=== PATIENT | female | born 1985 | race Caucasian/White ===

== ENCOUNTER 2016-06-28 05:33 | Day surgery (SDC) | payer BC, OTHER ==
--- NOTE | 2016-06-21 15:23 | HISTORY & PHYSICAL EXAMINATION ---
DATE OF ADMISSION: 06/28/2016 ADMITTING DIAGNOSIS: Persistent complex right ovarian cyst. ADMISSION HISTORY: The patient is a 31-year-old 0, last menstrual period of 05 June, who is admitted for laparoscopic right oophorectomy for a persistent complex ovarian cyst. The patient's pathology dates back to February of 2016. She was seen acutely by an ancillary provider for pelvic pain. She had a pelvic ultrasound, which showed a 10 x 8 x 6 cm complex ovarian cyst with 2 large multiple cysts. Over the patient's next 6 weeks, her pain resolved spontaneously. Repeat pelvic ultrasound though showed persistence of the large complex cyst. Treatment options were discussed with the patient and she has opted for surgical removal here in [place]. PAST MEDICAL HISTORY: OBSTETRICS: Nulligravida. GYNECOLOGY: As above. MEDICAL: Multiple sclerosis, fibromyalgia, and anxiety. SURGICAL: D\T\C. ALLERGIES: BACTRIM, CIPRO, MELOXICAM AND NAPROXEN. SOCIAL HISTORY: No smoking. FAMILY HISTORY: Noncontributory. REVIEW OF SYSTEMS: As per HPI. PHYSICAL EXAMINATION: GENERAL: Shows an obese female in no acute distress. VITAL SIGNS: Blood pressure 124/84, height of 5 feet 7 inches, and weight of 319 pounds. HEENT EXAMINATION: Unremarkable. NECK: Supple. LUNGS: Clear. HEART: With a regular rhythm and rate. ABDOMEN: Obese and nontender with no palpable masses. No rebound, no guarding, and no organomegaly. Positive bowel sounds. PELVIC: Shows normal external genitalia. Vaginal vault is pink and rugated. Cervical os is closed. On bimanual examination, the uterus, tubes, and ovaries cannot be palpated secondary to patient habitus. RECTAL: Confirmatory. EXTREMITIES: Show no deep calf tenderness. IMPRESSION: A 31-year-old 0, persistent complex right ovarian cyst for laparoscopic oophorectomy. PLAN: The risks, benefits and alternatives to the surgery have been discussed. While the benefits will be removal of the tissue, the risks are bleeding, infection, inadvertent perforation of bowel or bladder or failure to be able to remove the ovary completely laparoscopically. Alternatively, the patient had been offered a referral to a tertiary care center for possible ovarian cystectomy, but the patient declines. The possibility of also having to remove the right tube in addition to the right ovary has been discussed with the patient. The patient understands all of the above. The permit has been signed and she wishes to proceed.
[2016-06-21 15:24] VITALS: BMI 47.0
--- NOTE | 2016-06-21 16:02 | PAT Medication Instructions ---
Service Date Jun 21, 2016. Current Home Medication List Baclofen (Baclofen), 2 MG PO TID Cetirizine (Zyrtec), 10 MG PO QAM Cholecalciferol (Vitamin D3), 1 TAB PO QAM Citalopram Hydrobromide (Celexa), 20 MG PO HS Clonazepam (Klonopin), 0.5 MG PO DAILY PRN for Anxiety Fluticasone Propionate (Flonase Nasal [place]), 2 SPRAYS RAD DAILY PRN for PRN Gabapentin (Neurontin), 100 MG PO QAM LUNCH Gabapentin (Neurontin), 200 MG PO HS Glatiramer Acetate (Copaxone), 1 DOSE SQ M,W,F Melatonin (Melatonin Maximum Strengt), 1 TAB PO HS Naltrexone Hcl (Naltrexone Hcl), 100 MG PO HS Solifenacin (Vesicare), 5 MG PO DAILY PRN for PRN Medication Instructions For Your Scheduled Surgery - Continue as directed: Glatiramer Acetate ([place]), 1 DOSE SQ M,W,F - Hold the following medications the morning of surgery: Baclofen (Baclofen), 2 MG PO TID Cetirizine (Zyrtec), 10 MG PO QAM Cholecalciferol (Vitamin D3), 1 TAB PO QAM - Take the following medications the morning of surgery with a sip of water OTHERWISE NOTHING TO EAT OR DRINK AFTER MIDNIGHT: Clonazepam (Klonopin), 0.5 MG PO DAILY PRN for Anxiety Gabapentin (Neurontin), 100 MG PO QAM LUNCH (time permitting) Fluticasone Propionate (Flonase Nasal [place]), 2 SPRAYS RAD DAILY PRN for PRN - Take the following medications as scheduled the night before surgery: Baclofen (Baclofen), 2 MG PO TID Gabapentin (Neurontin), 200 MG PO HS Melatonin (Melatonin Maximum Strengt), 1 TAB PO HS Naltrexone Hcl (Naltrexone Hcl), 100 MG PO HS Citalopram Hydrobromide (Celexa), 20 MG PO HS Solifenacin (Vesicare), 5 MG PO DAILY PRN for PRN If you have any questions please call us at [phone] (Nicole Nagel PA-C ) or [phone] or [phone]
[2016-06-21 16:36] LABS: BASO % 0.2 %; BASO ABS # 0.03 K/uL (0-0.2); COMPLETE YES; EOS % 2.1 %; HEMATOCRIT 39.2 % (37-47); IG% 0.2 %; LYMPH % 23.5 %; LYMPH ABS # 2.99 K/uL (1.2-3.4); MEAN CELL VOLUME 84.3 fL (80-100); MEAN CORPUSCULAR HEMOGLOBIN 27.7 pg (25-34); MEAN CORPUSCULAR HGB CONC 32.9 g/dl (32-36); MEAN PLATELET VOLUME 9.1 fL (7.4-10.4); MONO % 4.8 %; NEUT % 69.2 %; PLATELET COUNT 317 K/uL (130-400); RED BLOOD COUNT 4.65 M/uL (4.2-5.4); WHITE BLOOD COUNT 12.74 K/uL (4.8-10.8)
[2016-06-21 17:01] LABS: CALCIUM 9.1 mg/dl (8.5-10.1); CREATININE 0.83 mg/dl (0.60-1.20); POTASSIUM 3.6 mmol/L (3.5-5.1)
[2016-06-28] VITALS (8 sets, daily range): BP systolic 105–151; BP diastolic 51–86; PULSE 80–103; TEMP 36.5–37.1; O2SAT 92–97; Ht 175.3 cm; Wt 144.0 kg
[~2016-06-28] VITALS: Ht 175.3 cm; Wt 144.0 kg
[~2016-06-28 05:33] MED LIST: CETI10TA84 PO; CHOL1000 PO; CITA20TA9 PO; CLON0.5T3 PO; FLNIN NAE; GABA-112 PO; GABA1CAP PO; GLAT1INJ SQ; LRS20 PO; MELATAB2 PO; NALT50TA5 PO; VSC/5 PO
[2016-06-28] MEDS ORDERED: MULT-506 PO (05:57)
[2016-06-28] MEDS ORDERED: LACTATED RINGER'S 1000ML 1,000 ML IV SCH ×2 (06:00)
[2016-06-28] MEDS ORDERED: FENTANYL CITRATE INJ 50 MCG/1 ML 2 ML VIAL ONE ×3 (06:58→09:24)
[2016-06-28] MEDS ORDERED: MIDAZOLAM HCL 1 MG/ML 2ML VIAL ONE (06:58)
--- NOTE | 2016-06-28 07:05 | History & Physical Bridge Note ---
H&P Re-Evaluation Bridge Note: I have examined the patient, reviewed the History & Physical and in the interval since the performance of the History & Physical I have noted the following changes of clinical significance: No changes noted
[2016-06-28] MEDS ORDERED: EpHEDrine SULFATE INJ 50 MG/ML AMP IV PRN (07:15)
[2016-06-28] MEDS ORDERED: ONDANSETRON INJ 2 MG/ML 2 ML VIAL IV PRN ×2 (07:15→09:15)
[2016-06-28] MEDS ORDERED: ATROPINE SULFATE 0.1 MG/ML 5ML SYR IV PRN (07:15)
[2016-06-28] MEDS ORDERED: PROPOFOL IV EMULSION 10 MG/ML 20 ML VIAL IV ONE (07:54)
[2016-06-28] MEDS ORDERED: DEXAMETHASONE SOD INJ 4 MG/ML VIAL ONE (07:54)
[2016-06-28] MEDS ORDERED: GLYCOPYRROLATE INJ 0.2 MG/ML VIAL ONE (07:54)
[2016-06-28] MEDS ORDERED: ROCURONIUM BROMIDE 10 MG/ML 5 ML VIAL ONE (07:54)
[2016-06-28] MEDS ORDERED: NEOSTIGMINE METHYLSULFATE 5 MG/5 ML SYR ONE (07:54)
[2016-06-28] MEDS ORDERED: ONDANSETRON INJ 2 MG/ML 2 ML VIAL ONE (07:54)
[2016-06-28] MEDS ORDERED: LIDOCAINE HCL 2% 2 ML VIAL (20MG/ML) ONE (07:54)
[2016-06-28] MEDS ORDERED: ACETAMINOPHEN IV 650 MG in EMPTY BAG 0 ML IV PRN (09:15)
[2016-06-28] MEDS ORDERED: OXYCODONE/ACETAMINOPHEN 5-325 TAB PO PRN (09:15)
[2016-06-28] MEDS ORDERED: SODIUM CHLORIDE 0.9% 1000ML 1,000 ML IV SCH (09:15)
--- NOTE | 2016-06-28 09:20 | [facility] Post Operative Brief Note ---
Immediate Operative Summary Operative Date Jun 28, 2016. Pre-Operative Diagnosis Persistent complex right ovarian cyst Post-Operative Diagnosis Same as preoperative diagnosis Procedure(s) Performed Right Laparoscopic Salpingo-Oophorectomy Jadiel on standby Surgeon Dr. Hilario Villalobos Cnc Service Technician Surgeon(s) Dr. Mallory Childs Estimated Blood Loss 50 ml Findings large multi-cystic right ovary, ruptured during dissection with chocolate fluid consistent with endometrioma, RSO performed, pelvis irrigated Fluids (cc crystalloids) 1200 Specimens Permanent specimens A: Right fallopian tube and ovary Drains None Anesthesia General Complication(s) None Disposition Recovery Room / PACU
--- NOTE | 2016-06-28 09:25 | Discharge Instructions-SurgCtr ---
Discharge Instructions Visit Reason for Visit: Complex Right Ovarian Cyst Discharge Discharge Diagnosis / Problem: same Discharge Goals Goal(s): Therapeutic intervention Activity Recommendations Activity Limitations: as noted below Anesthesia . Post Anesthesia Instructions: If you have had General Anesthesia or IV Sedation: * Do not drive today. * Resume driving when surgeon permits. * Do not make important decisions or sign legal documents today. * Call surgeon for: 1. Temperature elevations greater than 101 degrees F. 2. Uncontrollable pain. 3. Excessive bleeding. 4. Persistent nausea and vomiting. 5. Medication intolerance (nausea, vomiting or rash). * For nausea and vomiting use only clear liquids such as: tea, soda, bouillon until nausea subsides, then gradually increase diet as tolerated. * If you have any concerns or questions, call your surgeon's office. If physician is unavailable and it is an emergency, call 911 or go to the nearest emergency room. . Instructions / Follow-Up Instructions / Follow-Up ACTIVITY RECOMMENDATIONS: * Rest the first 2-3 days. You should be back to your normal activity levels by day 3. * No heavy lifting for 2 weeks. * No intercourse, tampons or douching for 1-2 weeks. * You may shower the next day. * Do not drive anytime that you are taking narcotic pain medicines. RETURN TO SCHOOL/WORK: * May return to school or work after 2-3 days. DIET: Nausea may occur in the immediate post-operative period. If so, take clear liquids such as tea, bouillon, apple juice until all nausea has subsided, then resume usual diet. MEDICATIONS: Resume previous medications unless instructed otherwise by your surgeon. Ibuprofen 200mg 2-3 tablets every 4-6 hours as needed -- OR -- Aleve 2 tablets every 8-12 hours as needed for post-operative discomfort Medications are over the counter. Tylenol may be used if above medications are contraindicated or not preferred. Medication should be taken with food or milk. Do not take on an empty stomach. SPECIAL CARE INSTRUCTIONS: * Check temperature twice daily for one week. report any elevation over 101 degrees. * You may experience some vagina spotting and/or bleeding. This is normal for 1 -2 weeks and should not be heavier than a normal period. If it is unusual in amount, call your physician. * Post-operative discomfort may consist of a sore throat, a "bloated" feeling and pain in the shoulders. these are normal symptoms, which usually only last for 2-3 days. * Remove band-aids tomorrow and shower. There is no need to replace band-aids unless there is drainage or discomfort. FOLLOW UP VISIT: Call your doctor's office for a post-operative 2 week visit if not already scheduled. Diet Recommendations Home Diet: resume previous diet Procedures Procedures Performed: Right Laparoscopic Salpingo-Oophorectomy Jadiel on standby Pending Studies Studies pending at discharge: yes List of pending studies: Pathology Medical Emergencies . Who to Call and When: Medical Emergencies: If at any time you feel your situation is an emergency, please call 911 immediately. . Non-Emergent Contact Non-Emergency issues call your: Lock Tender Call Non-Emergent contact if: you have a fever, temperature is above 100.5, your pain is not controlled, wound has increased drainage, wound has increased redness, wound has increased pain . . "Provider Documentation" section prepared by Hilario Villalobos.
[2016-06-28] MEDS ORDERED: OXYC-57 PO (09:26)
[2016-06-28] MEDS ORDERED: METOCLOPRAMIDE HCL INJ 5 MG/ML 2 ML VIAL ONE (09:36)
[2016-06-28] MEDS: FENTANYL CITRATE INJ 50 MCG/1 ML 2 ML VIAL IV PRN ×4 (09:42→10:00)
--- NOTE | 2016-06-28 09:42 | OPERATIVE REPORT ---
DATE OF OPERATION: 06/28/2016 PREOPERATIVE DIAGNOSIS: Right complex ovarian cyst. POSTOPERATIVE DIAGNOSES: 1. Same. 2. Right ovarian endometrioma. PROCEDURES PERFORMED: 1. Diagnostic laparoscopy. 2. Laparoscopic right salpingo-oophorectomy. SURGEON: Hilario Villalobos MD HOSTESS CASHIER: Mallory Childs MD ANESTHESIA: General. FINDINGS: Laparoscopic examination of the pelvis showed a large complex cyst of the right ovary and measuring approximately 10 cm adhered to the right pelvic sidewall, blunt dissection pulled the ovary off the right pelvic sidewall, left tube and ovary appeared grossly normal, right salpingo-oophorectomy performed and sent for pathological evaluation. PROCEDURE IN DETAIL: The patient was taken to the operating room and after general anesthesia, was placed in dorsolithotomy position and draped and prepped in the usual fashion. Menard catheter was inserted into the bladder which remained there throughout the procedure. Single tooth tenaculum was used to grasp the anterior lip of the cervix. [place] cannula was inserted into the cervical os and fastened to the tenaculum. Small subumbilical incision was made and Veress needle was introduced into the pelvic cavity which was then insufflated with 2 liters of CO2. A supraumbilical incision was made and a 12 mm port was inserted under direct laparoscopic guidance. Pelvic organs were visualized. Two paramedial 8 mm robotic ports were placed and the patient was placed in steep Trendelenburg. Pelvic organs were visualized with the description as above. The Harmonic scalpel was inserted through the right paramedial port. The ureter could be seen coursing along the medial reflection of the peritoneum at the pelvic brim going along the pelvic sidewall not being involved by the mass. Using the Harmonic scalpel, the infundibulopelvic ligament on the right side was cauterized adjacent to the ovary and the incision was extended along the mesosalpinx under the inferior margin of the tube. The tube was then cauterized at the apex and the uteroovarian ligament was then cauterized and cut freeing the mass. The Harmonic scalpel was removed and a 5 mm scope was placed through the right paramedial port. A 10 mm bag was placed through the suprapubic trocar and the right tube and ovary were placed into the bag and brought up to the fascial incision. The fascial incision was extended for approximately 2 cm to allow removal of the right tube and ovary. This was done in pieces and the bag was removed in toto. The pelvis was then thoroughly irrigated with 1000 mL of warm saline. Pedicles were inspected for hemostasis, which was present. The laparoscopic ports were removed. The fascia supraumbilically was closed in a running stitch with 0 Vicryl suture. The subcutaneous tissues were irrigated on all 3 ports and the skin incisions were closed with a 4-0 Monocryl subcuticular stitches. Sterile dressings were applied and the patient was taken to the recovery room in satisfactory condition. I attest to the content of the Intraoperative Record and any orders documented therein. Any exceptio ns are noted below.
[2016-06-28] MEDS ORDERED: NURSING VERBAL MED ORDER ONE ×2 (10:00→12:15)
[2016-06-28] MEDS ORDERED: ACETAMINOPHEN 1000 MG/100 ML IV IV ONE (10:17)
--- NOTE | 2016-06-28 10:40 | Anesthesiology Progress Note ---
Anesthesia Post Op Note Date & Time Jun 28, 2016 at 10:39 Vital Signs Pain Intensity: 5 Vital Signs Past 12 Hours Date Time Temp Pulse Resp B/P Pulse Ox O2 Delivery O2 Flow Rate FiO2 06/28/16 10:28 36.5 80 17 130/82 95 Nasal Cannula 3 06/28/16 10:23 127/88 06/28/16 10:20 86 19 06/28/16 10:20 85 19 95 06/28/16 10:18 140/88 06/28/16 10:15 83 17 95 06/28/16 10:15 83 17 06/28/16 10:13 103/93 06/28/16 10:10 81 19 06/28/16 10:10 80 19 91 06/28/16 10:08 133/81 06/28/16 10:05 83 14 93 06/28/16 10:05 83 14 06/28/16 10:04 86 17 91 06/28/16 10:04 87 17 06/28/16 10:03 120/82 06/28/16 09:59 77 17 06/28/16 09:59 76 17 93 06/28/16 09:58 123/88 06/28/16 09:55 79 18 94 06/28/16 09:55 80 18 06/28/16 09:53 133/89 06/28/16 09:50 75 17 95 06/28/16 09:50 75 17 06/28/16 09:48 136/83 06/28/16 09:45 80 21 95 06/28/16 09:45 80 21 06/28/16 09:43 121/83 06/28/16 09:40 90 25 93 06/28/16 09:40 90 25 06/28/16 09:38 136/75 06/28/16 09:35 89 16 94 06/28/16 09:35 90 16 06/28/16 09:33 126/72 06/28/16 09:30 94 18 95 06/28/16 09:30 94 18 06/28/16 09:30 36.1 98 20 119/58 96 Mask 10 06/28/16 05:59 36.7 81 20 119/51 97 Room Air Notes Mental Status: alert / awake / arousable, participated in evaluation Pt Amnestic to Procedure: Yes Nausea / Vomiting: adequately controlled Pain: adequately controlled Airway Patency, RR, SpO2: stable & adequate BP & HR: stable & adequate Hydration State: stable & adequate Anesthetic Complications: no major complications apparent
[2016-06-28] MEDS ORDERED: BACLOFEN TAB 20 MG TAB PO ONE (12:30)
[2016-12-10] MEDS ORDERED: GABA-112 PO (11:46)
[2016-12-10] MEDS ORDERED: triamcinolone TOP (11:50)
[2016-12-10] MEDS ORDERED: ESCI10TA17 PO (11:50)
[2016-12-10] MEDS ORDERED: VITA60003 TOP (11:50)
== END 2016-06-28 15:40 | disposition home or self-care (01) ==
LOC: C.ACU 05:33
PROVIDERS: ATTEND Obstetrics & Gynecology
DX: N83.201 Unspecified ovarian cyst, right side (principal); N80.1 Endometriosis of ovary; N80.2 Endometriosis of fallopian tube; G35 Multiple sclerosis; M79.7 Fibromyalgia; F41.9 Anxiety disorder, unspecified; F32.9 Major depressive disorder, single episode, unspecified; Z88.1 Allergy status to other antibiotic agents; Z68.42 Body mass index [BMI] 45.0-49.9, adult; E66.01 Morbid (severe) obesity due to excess calories
CPT/HCPCS: 58661; S2900

== ENCOUNTER → 2016-11-28 | Outpatient (CLI) | payer BC ==
[~2016-11-28] MED LIST changes: +ESCI10TA17 PO; +MULT-506 PO; +OXYC-57 PO; +VITA60003 TOP; +triamcinolone TOP
[2016-11-28 13:58] LABS: BASO % 0.3 %; BASO ABS # 0.03 K/uL (0-0.2); COMPLETE YES; HEMATOCRIT 40.6 % (37-47); IG% 0.3 %; LYMPH % 16.2 %; LYMPH ABS # 1.84 K/uL (1.2-3.4); MEAN CELL VOLUME 83.9 fL (80-100); MEAN CORPUSCULAR HEMOGLOBIN 27.7 pg (25-34); MONO % 3.2 %; PLATELET COUNT 339 K/uL (130-400); RED BLOOD COUNT 4.84 M/uL (4.2-5.4); WHITE BLOOD COUNT 11.33 K/uL (4.8-10.8)
[2016-11-28 14:19] LABS: ALT/SGPT 31 U/L (12-78); AST/SGOT 22 U/L (15-37); BLOOD UREA NITROGEN 11 mg/dl (7-18); CALCIUM 9.2 mg/dl (8.5-10.1); CARBON DIOXIDE 28 mmol/L (21-32); CHLORIDE 105 mmol/L (98-107); CREATININE 0.85 mg/dl (0.60-1.20); GLUCOSE 93 mg/dl (70-99); POTASSIUM 3.6 mmol/L (3.5-5.1); SODIUM 140 mmol/L (136-145)
[2016-11-28 14:20] LABS: ALB/GLOB RATIO 0.8 (0.9-2); ALKALINE PHOSPHATASE 132 U/L (45-117)
--- NOTE | 2016-11-28 15:56 | DIAGNOSTIC IMAGING REPORT ---
ULTRASOUND ABDOMEN COMPLETE CLINICAL HISTORY: Generalized abdominal pain.. COMPARISON STUDY: No priors. TECHNIQUE: Real-time, grayscale, and color flow sonography of the abdomen was performed. Images are reviewed in the transverse and longitudinal planes. FINDINGS: Liver: The liver is normal in size and echotexture. There is no intrahepatic biliary ductal dilatation. The main portal vein is patent. Gallbladder: The gallbladder is normal in appearance. No gallstones are identified. There is no gallbladder wall thickening or pericholecystic fluid. A sonographic Corral's sign is reportedly absent. The common bile duct measures up to 0.5 cm in diameter. Pancreas: Visualized portions of the pancreatic head and body are normal in appearance. The splenic vein is patent. Spleen: The spleen is normal in size and echotexture, measuring 12.0 cm in length. Kidneys: The kidneys are normal in size and echotexture. There is no hydronephrosis. The right kidney measures 11.6 cm in length and the left kidney measures 11.4 cm in length. No shadowing calculi are identified. Abdominal vasculature: Visualized portions of the abdominal aorta and IVC are normal as imaged. Ascites: None. Bladder: The bladder is partially decompressed and grossly unremarkable. IMPRESSION: Unremarkable sonographic assessment of the abdomen. Electronically signed by: Juan Antonio Martinez M.D. 11/28/2016 3:55 PM Dictated Date/Time: 11/28/2016 3:53 PM
== END | disposition home or self-care (01) ==
LOC: C.ULTR 13:24
PROVIDERS: ATTEND Family Medicine
DX: R10.9 Unspecified abdominal pain (principal)

== ENCOUNTER 2018-01-09 13:15 | Emergency (ER) | payer BC, OTHER ==
[~2018-01-09] VITALS: Ht 175.3 cm; Wt 133.9 kg
[~2018-01-09 13:15] MED LIST changes: -CITA20TA9 PO; -CLON0.5T3 PO; +GABA-1693 PO; -GABA1CAP PO; +KLN/5 PO; -OXYC-57 PO; -VSC/5 PO
[2018-01-09 13:22] VITALS: TEMP 36.9; Ht 175.3 cm; Wt 133.9 kg
[2018-01-09] MEDS ORDERED: SODIUM CHLORIDE 0.9% 1000ML 1,000 ML IV STA (13:50)
[2018-01-09] MEDS ORDERED: [UNRECOGNIZED DRUG - CODE] (14:28)
[2018-01-09] MEDS ORDERED: FLUT0.15 (14:28)
[2018-01-09] MEDS ORDERED: [UNRECOGNIZED DRUG - CODE] INJ (14:28)
[2018-01-09 14:30] VITALS: O2SAT 98
--- NOTE | 2018-01-09 14:40 | DIAGNOSTIC IMAGING REPORT ---
CHEST ONE VIEW PORTABLE CLINICAL HISTORY: 32 years-old Female presenting with EVALUATE WEAKNESS. TECHNIQUE: Portable upright AP view of the chest was obtained. COMPARISON: 06/25/2014. FINDINGS: Cardiomediastinal silhouette normal. No focal opacity. No large effusion or pneumothorax. Osseous structures normal. Upper abdomen normal. IMPRESSION: 1. No acute cardiopulmonary disease. Electronically signed by: Giuseppe Tran M.D. 01/09/2018 2:39 PM Dictated Date/Time: 01/09/2018 2:38 PM
[2018-01-09 14:45] LABS: BASO % 0.3 %; BASO ABS # 0.03 K/uL (0-0.2); EOS % 2.9 %; EOS ABS # 0.33 K/uL (0-0.5); HEMOGLOBIN 14.3 g/dL (12.0-16.0); IG# 0.02 K/uL (0.00-0.02); LYMPH % 28.4 %; MEAN CELL VOLUME 86.6 fL (80-100); MEAN CORPUSCULAR HEMOGLOBIN 29.5 pg (25-34); MEAN PLATELET VOLUME 9.4 fL (7.4-10.4); MONO % 4.8 %; MONO ABS # 0.54 K/uL (0.11-0.59); NEUT % 63.4 %; NEUT ABS # 7.13 K/uL (1.4-6.5); PLATELET COUNT 324 K/uL (130-400); RED CELL DISTRIBUTION WIDTH CV 14.2 % (11.5-14.5); RED CELL DISTRIBUTION WIDTH SD 44.2 fL (36.4-46.3); WHITE BLOOD COUNT 11.25 K/uL (4.8-10.8)
[2018-01-09 14:53] LABS: PTT PATIENT 31.5 SECONDS (21.0-31.0)
[2018-01-09 15:10] LABS: ALBUMIN 3.7 gm/dl (3.4-5.0); ALKALINE PHOSPHATASE 122 U/L (45-117); ALT/SGPT 29 U/L (12-78); AST/SGOT 24 U/L (15-37); BLOOD UREA NITROGEN 12 mg/dl (7-18); CALCIUM 8.9 mg/dl (8.5-10.1); CARBON DIOXIDE 29 mmol/L (21-32); GLUCOSE 81 mg/dl (70-99); POTASSIUM 3.1 mmol/L (3.5-5.1); SODIUM 136 mmol/L (136-145); TOTAL PROTEIN 8.3 gm/dl (6.4-8.2)
--- NOTE | 2018-01-09 16:12 | DIAGNOSTIC IMAGING REPORT ---
HEAD CT NONCONTRAST CT DOSE: 690.05 mGycm HISTORY: l facial numbness TECHNIQUE: Multiaxial CT images of the head were performed without the use of intravenous contrast. Automated exposure control was utilized for this study. A dose lowering technique was utilized adhering to the principles of ALARA. Comparison: None. Findings: The paranasal sinuses and mastoid air cells are clear. The calvarium and skull base are intact. The ventricles and sulci are within normal limits. There is no mass, hematoma, midline shift, or acute infarct. Impression: No acute intracranial abnormality. Electronically signed by: Ab Jules M.D. 01/09/2018 4:11 PM Dictated Date/Time: 01/09/2018 4:04 PM
[2018-01-09 17:04] VITALS: BP 133/69; PULSE 62; O2SAT 97
--- NOTE | 2018-01-09 17:47 | EMERGENCY ROOM VISIT NOTE ---
History Report prepared by Melodie: Moises Demarco Under the Supervision of: Mila MooreO. First contact with patient: 13:40 Chief Complaint: OTHER COMPLAINT Stated Complaint: HEARTBURN TOOK BREATH AWAY,NUMBNESS TO FACE&MOUTH History of Present Illness The patient is a 32 year old female who presents to the Emergency Room with complaints of heartburn that "took her breath away" occurring at 12:10 PM today while sitting at her desk, as well as numbness and tingling around her mouth and the left side of her face. She describes the sensation as a burning pain into the back of her throat. The patient reports a history of heartburn that states she has had intermittently for years. She notes her current symptoms are similar. The patient also notes tingling and numbness around the mouth and left side of the face beginning immediately after the onset of the heartburn. She denies tingling or numbness in the hands. The patient notes a history of multiple sclerosis. She denies weakness in her arms or legs, or difficulty with talking. Patient denies diabetes, hypertension, hyperlipidemia, CAD, history of sudden at a young age, and smoking. Pt denies change in vision, fevers, nausea, vomiting, diarrhea, pain with urination, and melena. Source of History: patient Onset: 12:10 PM today Position: other (into back of throat) Quality: burning, numbness Timing: constant (numbness in mouth and left side of face) Associated Symptoms: No weakness (arms or legs) Review of Systems See HPI for pertinent positives & negatives. A total of 10 systems reviewed and were otherwise negative. Past Medical & Surgical Medical Problems: (1) AGE (acute gastroenteritis) (2) Anxiety (3) Complex cyst of right ovary (4) Hematochezia (5) Multiple sclerosis Family History Diabetes mellitus FHx: cancer Hypertension Social History Smoking Status: Never Smoker Alcohol Use: none Drug Use: none Marital Status: Occupation Status: unemployed Current/Historical Medications Scheduled Baclofen (Baclofen), 1 TAB PO TID Cetirizine (Zyrtec), 10 MG PO QAM Cholecalciferol (Vitamin D3), 1 TAB PO QAM Escitalopram (Lexapro), 10 MG PO DAILY Gabapentin (Neurontin), 100 MG PO QAM and lunch Gabapentin (Neurontin), 200 MG PO HS Gabapentin (Neurontin), 200 MG PO HS Interferon Beta-1A (Rebif), 1 INJ BID Melatonin (Melatonin Maximum Strengt), 1 TAB PO HS Multivitamin (Multivitamin), 1 TAB PO DAILY Naltrexone Hcl (Naltrexone Hcl), 300 MG PO HS Vitamin E (Topical) (Natural Vitamin E Moistur), DIRECTED [triamcinolone], 0.1 % TOP DAILY Scheduled PRN Clonazepam (Klonopin), 0.5 MG PO DAILY PRN for Anxiety Miscellaneous Medications Fluticasone Propionate (Nasal) (Flonase Allergy Relief), 2 SPRAYS Allergies Coded Allergies: Naproxen (Verified Allergy, Intermediate, nausea, fingers swollen, 01/09/18 ) Meloxicam (Verified Allergy, Mild, CHEST DISCOMFORT, 01/09/18) Ciprofloxacin (Verified Adverse Reaction, Intermediate, heart raced, ) Sulfamethoxazole w/Trimethoprim (Verified Adverse Reaction, Unknown, heart races, 01/09/18) Physical Exam Vital Signs Date Time Temp Pulse Resp B/P (MAP) Pulse Ox O2 Delivery O2 Flow Rate FiO2 01/09/18 17:04 62 18 133/69 97 01/09/18 15:42 59 20 126/75 98 Room Air 01/09/18 14:30 98 Room Air 01/09/18 14:30 76 20 128/69 98 01/09/18 14:30 76 20 128/69 98 87 130/79 80 137/83 01/09/18 13:56 80 01/09/18 13:22 36.9 91 18 138/72 98 Room Air Physical Exam GENERAL: Sitting up in bed, alert, well appearing, well nourished, no distress, non-toxic EYE EXAM: normal conjunctiva. PERRL and EOM's intact. OROPHARYNX: no exudate, no erythema, lips, buccal mucosa, and tongue normal and mucous membranes are moist NECK: supple, no nuchal rigidity, no adenopathy, non-tender LUNGS: Clear to auscultation. Normal chest wall mechanics HEART: no murmurs, S1 normal and S2 normal ABDOMEN: abdomen soft, non-tender, normo-active bowel sounds, no masses, no rebound or guarding. BACK: Back is symmetrical on inspection and there is no deformity, no midline tenderness, no CVA tenderness. SKIN: no rashes and no bruising UPPER EXTREMITIES: upper extremities are grossly normal. LOWER EXTREMITIES: No pitting edema. Calves are equal bilateral NEURO EXAM: Normal sensorium, cranial nerves II-XII intact, normal speech, no weakness of arms, no weakness of legs. No drift. Finger to nose intact. Gross sensation intact. Rapid alternating movements of the upper extremities intact Medical Decision & Procedures ER Provider Diagnostic Interpretation: Radiology results as stated below per my review and the radiologist's interpretation: CHEST ONE VIEW PORTABLE CLINICAL HISTORY: 32 years-old Female presenting with EVALUATE WEAKNESS. TECHNIQUE: Portable upright AP view of the chest was obtained. COMPARISON: 06/25/2014. FINDINGS: Cardiomediastinal silhouette normal. No focal opacity. No large effusion or pneumothorax. Osseous structures normal. Upper abdomen normal. IMPRESSION: 1. No acute cardiopulmonary disease. Electronically signed by: Giuseppe Tran M.D. 01/09/2018 2:39 PM Dictated Date/Time: 01/09/2018 2:[address] NONCONTRAST CT DOSE: 690.05 mGycm HISTORY: l facial numbness TECHNIQUE: Multiaxial CT images of the head were performed without the use of intravenous contrast. Automated exposure control was utilized for this study. A dose lowering technique was utilized adhering to the principles of ALARA. Comparison: None. Findings: The paranasal sinuses and mastoid air cells are clear. The calvarium and skull base are intact. The ventricles and sulci are within normal limits. There is no mass, hematoma, midline shift, or acute infarct. Impression: No acute intracranial abnormality. Electronically signed by: Ab Jules M.D. 01/09/2018 4:11 PM Dictated Date/Time: 01/09/2018 4:04 PM Laboratory Results 01/09/18 14:19 Red Blood Count 4.85, Mean Corpuscular Volume 86.6, Mean Corpuscular Hemoglobin 29.5, Mean Corpuscular Hemoglobin Concent 34.0, Mean Platelet Volume 9.4, Neutrophils (%) (Auto) 63.4, Lymphocytes (%) (Auto) 28.4, Monocytes (%) (Auto) 4.8, Eosinophils (%) (Auto) 2.9, Basophils (%) (Auto) 0.3, Neutrophils # (Auto) 7.13, Lymphocytes # (Auto) 3.20, Monocytes # (Auto) 0.54, Eosinophils # (Auto) 0.33, Basophils # (Auto) 0.03 01/09/18 14:19 Test 01/09/18 14:14 01/09/18 14:19 01/09/18 14:25 Urine Color YELLOW Urine Appearance CLEAR (CLEAR) Urine pH 6.5 (4.5-7.5) Urine Specific [place] 1.007 (1.000-1.030) Urine Protein NEG (NEG) Urine Glucose (UA) NEG (NEG) Urine Ketones NEG (NEG) Urine Occult Blood NEG (NEG) Urine Nitrite NEG (NEG) Urine Bilirubin NEG (NEG) Urine Urobilinogen NEG (NEG) Urine Leukocyte Esterase NEG (NEG) White Blood Count 11.25 K/uL (4.8-10.8) Red Blood Count 4.85 M/uL (4.2-5.4) Hemoglobin 14.3 g/dL (12.0-16.0) Hematocrit 42.0 % (37-47) Mean Corpuscular Volume 86.6 fL (80-100) Mean Corpuscular Hemoglobin 29.5 pg (25-34) Mean Corpuscular Hemoglobin Concent 34.0 g/dl (32-36) Platelet Count 324 K/uL (130-400) Mean Platelet Volume 9.4 fL (7.4-10.4) Neutrophils (%) (Auto) 63.4 % Lymphocytes (%) (Auto) 28.4 % Monocytes (%) (Auto) 4.8 % Eosinophils (%) (Auto) 2.9 % Basophils (%) (Auto) 0.3 % Neutrophils # (Auto) 7.13 K/uL (1.4-6.5) Lymphocytes # (Auto) 3.20 K/uL (1.2-3.4) Monocytes # (Auto) 0.54 K/uL (0.11-0.59) Eosinophils # (Auto) 0.33 K/uL (0-0.5) Basophils # (Auto) 0.03 K/uL (0-0.2) RDW Standard Deviation 44.2 fL (36.4-46.3) RDW Coefficient of Variation 14.2 % (11.5-14.5) Immature Granulocyte % (Auto) 0.2 % Immature Granulocyte # (Auto) 0.02 K/uL (0.00-0.02) Prothrombin Time 10.0 SECONDS (9.0-12.0) Prothromb Time International Ratio 1.0 (0.9-1.1) Activated Partial Thromboplast Time 31.5 SECONDS (21.0-31.0) Partial Thromboplastin Ratio 1.2 Anion Gap 7.0 mmol/L (3-11) Est Creatinine Clear Calc Drug Dose 129.7 ml/min Estimated GFR () 96.7 Estimated GFR (Non- 83.4 BUN/Creatinine Ratio 13.6 (10-20) Calcium Level 8.9 mg/dl (8.5-10.1) Total Bilirubin 0.3 mg/dl (0.2-1) Direct Bilirubin < 0.1 mg/dl (0-0.2) Aspartate Amino Transf (AST/SGOT) 24 U/L (15-37) Alanine Aminotransferase (ALT/SGPT) 29 U/L (12-78) Alkaline Phosphatase 122 U/L (45-117) Troponin I < 0.015 ng/ml (0-0.045) Total Protein 8.3 gm/dl (6.4-8.2) Albumin 3.7 gm/dl (3.4-5.0) Thyroid Stimulating Hormone (TSH) 2.690 uIu/ml (0.300-4.500) Bedside Glucose 91 mg/dl (70-90) Laboratory results per my review. Medications Administered Medications (Trade) Dose Ordered Sig/Julia Route Start Time Stop Time Status Last Admin Dose Admin Sodium Chloride 1,000 ml @ 999 mls/hr Q1H1M STAT IV 01/09/18 13:50 01/09/18 14:53 DC 01/09/18 13:50 999 MLS/HR ECG Per My Interpretation Indication: other (heartburn) Rate (beats per minute): 75 Rhythm: sinus rhythm Findings: PVC, other (normal axis) ED Course ED COURSE: Vital signs were reviewed and showed normal vital signs The patients medical record was reviewed The above diagnostic studies were performed and reviewed. ED treatments and interventions as stated above. 1342: The patient was evaluated in room A12B. A complete history and physical examination was performed. 1620: I spoke to Dr. Felipe Andrade [facility]. He recommends a Medrol dose pack and following up with [facility]. 1635: I spoke to Dr. Tamra Garibay Neurology. She agrees with the treatment plan and with move the patient's appointment up. 1640: Upon reevaluation, the patient is resting. I discussed my findings with the patient and she understands and agrees with the treatment plan. Based on the patients age, coexisting illnesses, exam and lab findings the decision to treat as an outpatient was made. The patient remained stable while under my care. The patient appeared well at the time of discharge. Medical Decision Differential Diagnosis includes but is not limited to ischemic Stroke, hemorrhagic stroke, bells palsy, mass, neoplasm, migraine headache, seizure, subarachnoid hemorrhage, TIA, and transient global amnesia. Patient is a 32-year-old female who presents to the ER for burning in the middle of her chest associated with left-sided visual numbness. She has had a history of reflux for the past several years and notes that this is 100% consistent with her reflux. She denies any cardiac risk factors. She notes that she does have a history of MS. She presented as she was concerned with the paresthesias on the left side of her face. She notes with her MS she normally has a right-sided paresthesias and intermittent right dropfoot. CBC with BMP shows mild hypokalemia at 3.1. Bilirubin, LFTs, troponin and TSH were normal. UA negative. INR was unremarkable. CT head was negative. EKG unremarkable along with chest x-ray. Discussed with her neurologist and they agree that this is likely consistent with an MS flare. I also discussed with her neurologist at [facility] who agrees as well. Her she recommended no steroids and following up as an outpatient. Her neurologist did recommend steroids but I defer to her she is that is where she follows. Patient was agreeable and discharged to follow-up with PCP. Discussed with Pt concerning signs and symptoms to watch out for. Pt was instructed to follow up with their PCP and discussed with the patient their option to return to the ED at anytime for persistent or worsening symptoms. The appropriate anticipatory guidance and out-patient management, including indications for return to the emergency department, were explained at length to the patient and understood. Medication Reconcilliation Current Medication List: was personally reviewed by me Blood Pressure Screening Patient's blood pressure: Normal blood pressure Blood pressure disposition: Did not require urgent referral Consults Time Called: 1615 Consulting Physician: Dr. Wang - Neurology Returned Call: [address] Wang - Neurology. He recommends a Medrol dose pack and following up with [facility]. Additional Consults: Time Called: 1630 Consulted Physician: Dr. Tamra Garibay Neurology Returned Call: 1635 Additional Comments: I spoke to Dr. Tamra Garibay Neurology. She agrees with the treatment plan and with move the patient's appointment up. Impression Primary Impression: Facial paresthesia Additional Impressions: Hypokalemia Multiple sclerosis Scribe Attestation The scribe's documentation has been prepared under my direction and personally reviewed by me in its entirety. I confirm that the note above accurately reflects all work, treatment, procedures, and medical decision making performed by me. Departure Information Dispostion Home / Self-Care Referrals Jazmine Cleveland M.D. (PCP) Forms HOME CARE DOCUMENTATION FORM, IMPORTANT VISIT INFORMATION, WORK / SCHOOL INSTRUCTIONS Patient Instructions My [facility] Additional Instructions Please make sure that you follow-up with your PCP within the next 24 hours. Any worsening of her symptoms including change in vision, weakness or numbness in the arms or legs, inability to swallow, double vision or change in vision, chest pain, shortness of breath, or any other concerning signs or symptoms please return immediately to the ER. Please make sure that you follow up with your neurologist within the next 24 hours and discuss further follow-up care. Problem Qualifiers
== END 2018-01-09 17:06 | disposition home or self-care (01) ==
LOC: C.EDB 13:17 → C.EDA 17:06
DX: R20.2 Paresthesia of skin (principal); E87.6 Hypokalemia; K52.9 Noninfective gastroenteritis and colitis, unspecified; F41.9 Anxiety disorder, unspecified; G35 Multiple sclerosis; Z88.8 Allergy status to other drugs, medicaments and biological substances